=== PATIENT | female | born 1980 | race Caucasian/White ===

== ENCOUNTER 2016-12-22 00:40 | Emergency (ER) | payer OTHER ==
[2016-12-22 01:30] LABS: BILIRUBIN NEGATIVE (NEGATIVE); BLOOD 3+ Ery/uL (NEGATIVE); CLARITY CLOUDY (CLEAR); COLOR YELLOW (YELLOW); GLUCOSE (U) NORMAL (NORMAL); KETONE (U) TRACE mg/dL (NEGATIVE); LEUKOCYTES 2+ Leu/uL (NEGATIVE); NITRITE POSITIVE (NEGATIVE); PROTEIN 2+ mg/dL (NEGATIVE); SPECIFIC GRAVITY >=1.030 (1.001-1.030); UROBILINOGEN 0.2 mg/dL (0.2-1.0)
[2016-12-22 01:37] LABS: BACTERIA 2+; MUCOUS MODERATE; URINARY WBC 20-50
== END 2016-12-22 02:18 | disposition home or self-care (01) ==
LOC: FER 00:40
PROVIDERS: Emergency Medicine
DX: N39.0 Urinary tract infection, site not specified (principal); Z88.0 Allergy status to penicillin
CPT/HCPCS: 81001; 87076; 87088; 87186; J1885

== ENCOUNTER → 2017-01-24 | Day surgery (SDC) | payer OTHER ==
[2017-01-24 09:14] LABS: HCT 38.8 % (37.0-47.0); HGB 12.6 g/dl (12.5-16.0); MCH 28.4 pg (25.0-31.0); MCHC 32.5 g/dL (32.0-36.0); MCV 87.4 fL (78.0-100.0); MPV 11.9 fL (6.0-9.5); RBC 4.44 M/uL (4.20-5.40); RDW 14.9 % (11.5-14.0); WBC 6.5 K/uL (4.0-10.5)
[2017-01-24 09:23] LABS: ALBUMIN 3.7 g/dL (3.5-5.0); BILIRUBIN - TOTAL 0.2 mg/dL (0.1-1.0); CREATININE 0.6 mg/dL (0.5-1.0); GLOBULIN (CALCULATION) 2.6 g/dL (2.2-4.2); POTASSIUM 4.2 mmol/L (3.5-5.1); TOTAL PROTEIN 6.3 g/dL (6.4-8.3)
== END | disposition home or self-care (01) ==
LOC: FAS 01-12 09:00
PROVIDERS: Surgery
DX: K29.50 Unspecified chronic gastritis without bleeding (principal); K20.9 Esophagitis, unspecified; F41.9 Anxiety disorder, unspecified; D64.9 Anemia, unspecified; F31.9 Bipolar disorder, unspecified; K21.9 Gastro-esophageal reflux disease without esophagitis; E61.1 Iron deficiency; G43.909 Migraine, unspecified, not intractable, without status migrainosus; E66.9 Obesity, unspecified; G25.81 Restless legs syndrome; E55.9 Vitamin D deficiency, unspecified; F17.210 Nicotine dependence, cigarettes, uncomplicated; Z88.0 Allergy status to penicillin; Z79.899 Other long term (current) drug therapy; Z87.440 Personal history of urinary (tract) infections; Z91.040 Latex allergy status; Z98.51 Tubal ligation status; Z98.890 Other specified postprocedural states
CPT/HCPCS: 36415; 80053; 84703; 88305; J2704

== ENCOUNTER 2017-04-16 18:32 | Emergency (ER) | payer OTHER | END 2017-04-16 20:33 | disposition left against medical advice (07) | LOC: FER 18:32 | DX: K04.7 Periapical abscess without sinus (principal); Z88.0 Allergy status to penicillin; Z79.899 Other long term (current) drug therapy | CPT/HCPCS: 99282; J1885 ==

== ENCOUNTER 2020-11-20 23:34 | Emergency (ER) | payer OTHER ==
[~2020-11-20 23:34] MED LIST: ALLEGRA ALLERG180 MG PO; BUSPAR5 MG PO; CIPRO500 MG PO; CYMBALTA 30MG C30 MG PO; CYMBALTA20 MG PO; HYDROXYZINE 10M10 MG PO; IBUPROFEN600 MG PO; IRON325 M1 PO; MACROBID100 MG PO; MEDROL 4MG DOSEP4 MG PO; METRONIDAZOLE500 MG PO; NEURONTIN300 MG PO; NORCO 5-325 TA1 EACH PO; ONDANSETRON ODT4 MG SL; PEPCID AC20 MG PO; PYRIDIUM200 MG PO; VITAMIN D5000 UNI1 PO
[2020-11-21] MEDS ORDERED: CLEOCIN300 MG PO (00:25)
== END 2020-11-21 00:40 | disposition home or self-care (01) ==
LOC: FER 23:34
DX: J02.9 Acute pharyngitis, unspecified (principal); E11.9 Type 2 diabetes mellitus without complications; J45.909 Unspecified asthma, uncomplicated; F17.210 Nicotine dependence, cigarettes, uncomplicated; Z88.0 Allergy status to penicillin
CPT/HCPCS: 87880; 99282

== ENCOUNTER 2021-01-01 17:57 | Emergency (ER) | payer OTHER ==
[~2021-01-01 17:57] MED LIST changes: +CLEOCIN300 MG PO
[2021-01-01 20:26] LABS: BASOPHIL 0.4 % (0-2); EOSINOPHIL 1.1 % (0-5); HCT 36.4 % (37.0-47.0); HGB 11.2 g/dl (12.5-16.0); MCH 25.1 pg (25.0-31.0); MCHC 30.8 g/dL (32.0-36.0); MCV 81.6 fL (78.0-100.0); MONOCYTE 9.7 % (0-12); MPV 11.2 fL (6.0-9.5); NEUTROPHIL 55.4 % (41-80); NRBC 0; PLT 243 K/uL (150-400); RBC 4.46 M/uL (4.20-5.40); RDW 16.2 % (11.5-14.0)
[2021-01-01 20:27] LABS: BILIRUBIN NEGATIVE (NEGATIVE); BLOOD NEGATIVE Ery/uL (NEGATIVE); CLARITY CLEAR (CLEAR); COLOR YELLOW (YELLOW); GLUCOSE (U) NORMAL (NORMAL); LEUKOCYTES NEGATIVE Leu/uL (NEGATIVE); NITRITE NEGATIVE (NEGATIVE); PROTEIN NEGATIVE (NEGATIVE); UROBILINOGEN 0.2 mg/dL (0.2-1.0)
[2021-01-01 20:32] LABS: BARBITURATES NEGATIVE (NEGATIVE); ECSTASY (MDMA) NEGATIVE (NEGATIVE); MARIJUANA (THC) POSITIVE (NEGATIVE); METHADONE NEGATIVE (NEGATIVE); OPIATES NEGATIVE (NEGATIVE)
[2021-01-01 20:33] LABS: AMPHETAMINES NEGATIVE (NEGATIVE); OXYCODONE NEGATIVE (NEGATIVE)
[2021-01-01 20:47] LABS: MONOSPOT (MONONUCLEOSIS) NEGATIVE (NEGATIVE)
[2021-01-01 20:52] LABS: ALBUMIN 3.3 g/dL (3.4-5.0); BILIRUBIN - TOTAL 0.2 mg/dL (0.2-1.0); BUN/CREAT RATIO (CALC) 21.7 RATIO; CREATININE 0.6 mg/dL (0.51-0.95); POTASSIUM 3.7 mmol/L (3.5-5.1); TOTAL PROTEIN 7.3 g/dL (6.4-8.2)
[2021-01-01 22:09] LABS: ACETAMINOPHEN (TYLENOL) < 2.0 ug/mL (10.0-30.0)
[2021-01-05 20:07] LABS: CHLAMYDIA TRACHOMATIS, NAA Negative (Negative); NEISSERIA GONORRHOEAE, NAA Negative (Negative)
== END 2021-01-01 23:03 | disposition home or self-care (01) ==
LOC: FER 17:57
PROVIDERS: Emergency Medicine Emergency Medical Services
DX: S05.12XA Contusion of eyeball and orbital tissues, left eye, initial encounter (principal); R33.9 Retention of urine, unspecified; F19.10 Other psychoactive substance abuse, uncomplicated; S02.32XA Fracture of orbital floor, left side, initial encounter for closed fracture; F17.200 Nicotine dependence, unspecified, uncomplicated; Z87.19 Personal history of other diseases of the digestive system; Z88.0 Allergy status to penicillin; X58.XXXA Exposure to other specified factors, initial encounter; Y04.2XXA Assault by strike against or bumped into by another person, initial encounter
CPT/HCPCS: 36415; 70450; 70486; 72125; 80053; 80305; 81003; 85025; 86308; 87088; 87491; 87591; 87880; G0480